=== PATIENT | female | born 1955 | race Caucasian/White ===

== ENCOUNTER 2018-04-21 19:40 | Emergency (ER) | payer OTHER ==
[~2018-04-21] VITALS: Ht 170.2 cm; Wt 68.0 kg
[2018-04-21] MEDS ORDERED: SERT25 PO (20:17)
[2018-04-21] MEDS ORDERED: LOSA25 PO (20:17)
[2018-04-21] MEDS ORDERED: LEVSOD100 PO (20:17)
[2018-04-21] MEDS ORDERED: KETO10 PO ×2 (21:11→21:14)
== END 2018-04-21 21:17 | disposition home or self-care (01) ==
LOC: ER 19:40
DX: M77.51 Other enthesopathy of right foot and ankle (principal)
CPT/HCPCS: 73630; 99283-25